=== PATIENT | male | born 1960 | race Caucasian/White ===

== ENCOUNTER 2018-12-29 09:17 | Day surgery (SDC) | payer OTHER ==
[2018-12-29] MEDS ORDERED: PROPOFOL 40 ML (11:11)
[2018-12-29] MEDS ORDERED: ONDANSETRON 4 MG INJ IV (11:30)
[2018-12-29] MEDS ORDERED: ALBUTEROL 0.083% (NEB) 2.5 MG/3 ML AMP HHN (11:30)
[2018-12-29] MEDS ORDERED: LABETALOL HCL 20MG INJ IV (11:30)
[2018-12-29] MEDS ORDERED: OXYCODONE/ACETAMINOPHEN (5/325) TAB PO ×2 (11:30)
== END 2018-12-29 12:57 | disposition home or self-care (01) ==
LOC: GIL 09:17
DX: Z12.11 Encounter for screening for malignant neoplasm of colon (principal); K64.8 Other hemorrhoids; I10 Essential (primary) hypertension; J45.909 Unspecified asthma, uncomplicated; G47.30 Sleep apnea, unspecified
CPT/HCPCS: 45378